=== PATIENT | male | born 1990 | race African-American/Black ===

== ENCOUNTER 2022-07-24 09:11 | Emergency (ER) | payer MEDICARE, OTHER ==
--- NOTE | 2022-07-24 10:50 | ED ---
General Adult HPI - General Chief complaint: Recheck/Abnormal Lab/Rx Stated complaint: URI Time Seen by Provider: 07/24/22 09:58 Source: patient, RN notes reviewed Mode of arrival: ambulatory Limitations: no limitations - History of Present Illness Initial comments: 32-year-old male presents emergency Department chief complaint of needing COVID- 19 testing. Patient states his family is sick as works requiring him to be tested. Patient also states that he has a history of high blood pressure is not on any current medications is not her primary care physician. Patient denies any chest pain headache dizziness nausea vomiting diarrhea constipation. - Related Data Previous Rx's Medication Instructions Recorded lisinopriL [Zestril] 5 mg PO DAILY #30 tab 07/24/22 Allergies Allergy/AdvReac Type Severity Reaction Status Date / Time No Known Allergies Allergy Verified 07/24/22 09:56 Review of Systems ROS Statement: Those systems with pertinent positive or pertinent negative responses have been documented in the HPI. ROS Other: All systems not noted in ROS Statement are negative. Past Medical History Past Medical History: No Reported History History of Any Multi-Drug Resistant Organisms: None Reported Past Surgical History: Hernia Repair Past Psychological History: No Psychological Hx Reported Smoking Status: Current every day smoker Past Alcohol Use History: None Reported Past Drug Use History: Marijuana General Exam Limitations: no limitations General appearance: alert, in no apparent distress Head exam: Present: atraumatic, normocephalic, normal inspection Eye exam: Present: normal appearance, PERRL, EOMI. Absent: scleral icterus, conjunctival injection, periorbital swelling ENT exam: Present: normal exam, normal oropharynx, mucous membranes moist, TM's normal bilaterally Neck exam: Present: normal inspection. Absent: tenderness, meningismus, lymphadenopathy Respiratory exam: Present: normal lung sounds bilaterally. Absent: respiratory distress, wheezes, rales, rhonchi, stridor Cardiovascular Exam: Present: regular rate, normal rhythm, normal heart sounds. Absent: systolic murmur, diastolic murmur, rubs, gallop, clicks GI/Abdominal exam: Present: soft, normal bowel sounds. Absent: distended, tenderness, guarding, rebound, rigid Course Vital Signs 07/24/22 09:52 Temperature 98 F Pulse Rate 61 Respiratory 16 Rate Blood Pressure 154/107 O2 Sat by Pulse 100 Oximetry Medical Decision Making - Medical Decision Making Negative: 19 testing. Patient discharged stable condition patient advised follow-up with PCP return parameters discussed - Lab Data Lab Results 07/24/22 Range/Units 09:45 Coronavirus (PCR) Not Detected (Not Detectd) Disposition Clinical Impression: Hypertension, Encounter for laboratory testing for COVID-19 virus Disposition: HOME SELF-CARE Condition: Stable Instructions (If sedation given, give patient instructions): Hypertension (ED) Additional Instructions: Please return to the Emergency Department if symptoms worsen or any other concerns. Prescriptions: lisinopriL [Zestril] 5 mg PO DAILY #30 tab Is patient prescribed a controlled substance at d/c from ED?: No Referrals: Nonstaff,Physician [Primary Care Provider] - 1-2 days Time of Disposition: 10:50
[2022-07-24 11:08] VITALS: BP 141/108; PULSE 67; RESP 18; TEMP 98.1
== END 2022-07-24 11:07 | disposition home or self-care (01) ==
LOC: EC 09:11
DX: Z00.00 Encounter for general adult medical examination without abnormal findings (principal); I10 Essential (primary) hypertension; F17.200 Nicotine dependence, unspecified, uncomplicated; F12.90 Cannabis use, unspecified, uncomplicated; Z20.822 Contact with and (suspected) exposure to COVID-19
CPT/HCPCS: 87635; 99283